=== PATIENT | female | born 1990 | race Caucasian/White ===

== ENCOUNTER 2018-11-03 23:20 | Emergency (ER) | payer MEDICAID, OTHER ==
[~2018-11-03] VITALS: Wt 70.4 kg
[~2018-11-03 23:20] MED LIST: IBUP-1545 PO; PERCOCET PO; PREN-29 PO
[2018-11-04] MEDS ORDERED: CEPH-443 PO (01:40)
--- NOTE | 2018-11-04 01:40 | ERD ---
ER Documentation Chief Complaint Chief Complaint DYSURIA, LOWER BACK PAIN X'S 2 DAYS HPI 28-year-old female presents with 2 days of dysuria hematuria and increased urinary frequency. No fever. No nausea or vomiting. No flank pain. Denies possibility of . She does have lower back pain. ROS All systems reviewed and are negative except as per history of present illness. Medications Home Meds Active Scripts Oxycodone Hcl/Acetaminophen (Percocet) 1 Tab Tab, 2 TAB PO Q4H PRN for PAIN LEVEL 6-10 for 7 Days, TAB 0 Refills Prov:ROLDAN WONG MD 02/16/15 Ibuprofen* (Ibuprofen*) 800 Mg Tab, 800 MG PO Q8 for pain , #20 TAB Prov:ROLDAN WONG MD 02/16/15 Reported Medications Vit-Fe Fumarate-FA* (Abhay Tablet*) 1 Tab Tablet, 1 TAB PO DAILY, TAB 02/14/15 Allergies Allergies: Coded Allergies: No Known Allergy (Unverified , 02/14/15) PMhx/Soc History of Surgery: Yes (CSECTION) Anesthesia Reaction: No Hx Neurological Disorder: No Hx Respiratory Disorders: No Hx Cardiac Disorders: No Hx Psychiatric Problems: No Hx Miscellaneous Medical Probl: No Hx Alcohol Use: No Hx Substance Use: No Hx Tobacco Use: No FmHx Family History: No diabetes Physical Exam Vitals Vital Signs Date Temp Pulse Resp B/P (MAP) Pulse Ox O2 O2 Flow FiO2 Time Delivery Rate 11/03/18 98.1 101 18 133/76 99 23:28 (95) Physical Exam Const: No acute distress Head: Atraumatic Eyes: Normal Conjunctiva ENT: Normal External Ears, Nose and Mouth. Neck: Full range of motion. No meningismus. Resp: Clear to auscultation bilaterally Cardio: Regular rate and rhythm, no murmurs Abd: Soft, non tender, non distended. No CVA tenderness bilaterally Procedures/MDM Patient presents with dysuria hematuria frequency. She is afebrile well- appearing. She likely has a urinary tract infection. Her urine was sent for culture and she was started on Keflex. Patient counseled regarding my diagnostic impression and care plan. Prior to discharge all questions answered. Pt agrees with treatment plan and understands strict return precautions. Pt is instructed to follow up with primary care provider within 24-48 hours. Precautionary instructions provided including instructions to return to the ER if not improving or for any worsening or changing symptoms or concerns. Departure Diagnosis: Primary Impression: Dysuria Condition: Stable JOSE JUAN TAVERAS PA-C Nov 04, 2018 01:40
[2018-11-04 01:54] VITALS: BP 122/82; PULSE 77; RESP 18
== END 2018-11-04 02:00 | disposition home or self-care (01) ==
LOC: FTE 23:20
DX: R30.0 Dysuria (principal)
CPT/HCPCS: 81025; 87086; Z7502; 99283